=== PATIENT | female | born 1960 | race Caucasian/White ===

== ENCOUNTER 2016-12-04 11:21 | Emergency (ER) | payer SELFPAY ==
[2016-12-04 11:32] VITALS: RESP 16
--- NOTE | 2016-12-04 12:01 | C.PDOC ---
History Of Present Illness 56 y/o F c PSHx cholecystectomy 2013 p/w R sided pain over R lower rib cage x 5 weeks. She states the pain is worse with movement, sleeping on that side, carrying something with the R arm, big breath, or walking. She states the pain sometimes is in the epigastrium. She reports nausea but no vomiting. She has taken on pantoprazole which she has for "acid." She denies fever, chills, dyspnea, chest pain, diarrhea, dysuria, frequent urination, rash, injury. PMD Ronnie Leal Time Seen by Provider: 12/04/16 11:43 Chief Complaint (Nursing): Abdominal Pain Past Medical History Reviewed: Historical Data, Nursing Documentation, Vital Signs Vital Signs: Last Vital Signs Temp 98 F 12/04/16 11:30 Pulse 73 12/04/16 11:30 Resp 16 12/04/16 11:30 BP 122/76 12/04/16 11:30 Pulse Ox 100 12/04/16 13:15 - Medical History PMH: No Chronic Diseases Surgical History: Cholecystectomy (2013) Family History: States: Unknown Family Hx - Social History Hx Tobacco Use: No Hx Alcohol Use: No Hx Substance Use: No - Immunization History Hx Influenza Vaccination: No Hx Pneumococcal Vaccination: No Review Of Systems Except As Marked, All Systems Reviewed And Found Negative. Constitutional: Negative for: Fever Cardiovascular: Negative for: Chest Pain Physical Exam - Physical Exam Additional Physical Exam Comments: Constitutional: No acute distress. Head: Normocephalic. Atraumatic. Eyes: PERRL. ENT: Moist mucous membranes. Neck: Supple. Cardiovascular: Regular rate. Radial pulse 2+ bilaterally. Chest: No tenderness. Respiratory: Clear to auscultation bilaterally. GI: Soft. Nondistended. Mild tenderness RUQ. Back: No CVA tenderness. Musculoskeletal: Tenderness over R lower anterior rib cage. No tenderness or swelling of extremities. Skin: No rash. Neurologic: Alert, no focal deficit. ED Course And Treatment - Laboratory Results Result Diagrams: 12/04/16 13:16 12/04/16 13:16 O2 Sat by Pulse Oximetry: 100 (ra) Pulse Ox Interpretation: Normal Medical Decision Making Medical Decision Making: Chest X-Ray, Read by Alisha Rutherford MD: FINDINGS: Examination limited by habitus. LUNGS: No focal consolidation. Please note that chest x-ray has limited sensitivity for the detection of pulmonary masses. PLEURA: No significant pleural effusion identified. No definite pneumothorax . CARDIOVASCULAR: The cardiomediastinal silhouette appears within normal limits of size. OSSEOUS STRUCTURES: No acute osseous abnormality identified. VISUALIZED UPPER ABDOMEN: Right upper quadrant surgical clips. OTHER FINDINGS: None. IMPRESSION: No focal consolidation, significant pleural effusion, or definite pneumothorax identified. Labs unremarkable. Patient refused CT. Will discharge home, f/u PMD, return to ER for worsening pain, fever, vomiting, dyspnea, or any other problem. Disposition - Disposition Referrals: Ronnie Leal MD [Staff Provider] - Disposition: HOME/ ROUTINE Disposition Time: 15:50 Condition: STABLE Prescriptions: Ibuprofen [Motrin] 1 tab PO Q6 #30 tab Instructions: Thoracic Pain (ED) - Clinical Impression Clinical Impression: Pain of right side of body
[2016-12-04] MEDS ORDERED: Sodium Chloride 0.9% 1,000 ML IV STA (12:02)
[2016-12-04] MEDS ORDERED: Sodium Chloride 0.9% 1,000 ML ONE ×2 (12:59→13:43)
--- NOTE | 2016-12-04 13:10 | RAD ---
HISTORY: R sided pain COMPARISON: None available. TECHNIQUE: Chest PA and lateral FINDINGS: Examination limited by habitus. LUNGS: No focal consolidation. Please note that chest x-ray has limited sensitivity for the detection of pulmonary masses. PLEURA: No significant pleural effusion identified. No definite pneumothorax . CARDIOVASCULAR: The cardiomediastinal silhouette appears within normal limits of size. OSSEOUS STRUCTURES: No acute osseous abnormality identified. VISUALIZED UPPER ABDOMEN: Right upper quadrant surgical clips. OTHER FINDINGS: None. IMPRESSION: No focal consolidation, significant pleural effusion, or definite pneumothorax identified.
[2016-12-04 13:21] LABS: BASO # 0.1 K/uL (0.0-0.2); BASO % 1.3 % (0.0-2.0); EOS # 0.2 K/uL (0.0-0.7); EOS % 3.1 % (0.0-4.0); HEMATOCRIT 44.5 % (34.0-47.0); LYMPH # 2.2 K/uL (1.0-4.3); LYMPH % 33.4 % (20.0-40.0); MEAN CELL VOLUME 91.5 fL (81.0-99.0); MEAN CORPUSCULAR HEMOGLOBIN 30.5 pg (27.0-31.0); MEAN CORPUSCULAR HGB CONC 33.3 g/dL (33.0-37.0); MEAN PLATELET VOLUME 8.4 fL (7.2-11.7); MONO # 0.4 K/uL (0.0-0.8); MONO % 6.2 % (0.0-10.0); NRBC % 0.1 % (0.0-2.0); RED CELL DISTRIBUTION WIDTH 13.6 % (11.5-14.5); WHITE BLOOD COUNT 6.5 K/uL (4.8-10.8)
[2016-12-04 13:28] LABS: CHLORIDE 100 mmol/L (98-107); SODIUM 141 mmol/L (132-148)
[2016-12-04 13:29] LABS: POTASSIUM 4.1 mmol/L (3.6-5.2)
[2016-12-04 13:30] LABS: GFR AFRICAN-AMERICAN > 60
[2016-12-04 13:31] LABS: ALB/GLOB RATIO 1.2 (1.0-2.1); ALKALINE PHOSPHATASE 85 U/L (38-126); ALT/SGPT 19 U/L (9-52); AST/SGOT 24 U/L (14-36); BILIRUBIN,TOTAL 0.4 mg/dL (0.2-1.3); BLOOD UREA NITROGEN 13 mg/dL (7-17); CARBON DIOXIDE 25 mmol/L (22-30); GLUCOSE,RANDOM 96 mg/dL (65-105); TOTAL PROTEIN 7.8 g/dL (6.3-8.3)
[2016-12-04 13:32] LABS: CALCIUM 9.2 mg/dl (8.6-10.4); RBC URINE < 1 /hpf (0-3); URINE BILIRUBIN NEGATIVE (NEGATIVE); URINE BLOOD NEGATIVE (NEGATIVE); URINE COLOR Yellow (YELLOW); URINE GLUCOSE (UA) NORMAL (Normal); URINE KETONE NEGATIVE (NEGATIVE); URINE LEUKOCYTE ESTERASE NEG Leu/uL (Negative); URINE PROTEIN NEGATIVE (NEGATIVE); URINE UROBILINOGEN NORMAL mg/dL (0.2-1.0); WBC URINE < 1 /hpf (0-5)
[2016-12-04 16:02] VITALS: BP 144/88; PULSE 68; TEMP 97.8; O2SAT 99
== END 2016-12-04 16:12 | disposition home or self-care (01) ==
LOC: C.ER 11:21
DX: R07.81 Pleurodynia (principal)
CPT/HCPCS: 71020; 80053; 81001; 83690; 84703; 85025; 99285; J7040